=== PATIENT | female | born 1985 | race Caucasian/White ===

== ENCOUNTER 2016-10-16 22:15 | Emergency (ER) | payer OTHER ==
[~2016-10-16 22:15] MED LIST: ALPRAZOLAM PO; ATIVAN; ATIVAN PO; BACTRIM DS TABL1 TAB PO; CIPRO PO; CYMBALTA PO; FLAGYL PO; FLEXERIL PO; IBUPROFEN PO; KEFLEX250 M1 PO; KEPPRA750 MG; KEPPRA750 MG PO; KETOPROFEN PO; KLONOPIN; MACROBID100 MG DOB; MEDROL PO; MOBIC7.5 MG/5 M PO; NORCO 10/325 TA1 TAB PO; ORUDIS75 M1 PO; PHENERGAN PR; PYRIDIUM PO; TYLENOL #3 PO; VICODIN 5/500 T1 TAB PO; VOLTAREN75 MG PO
[2016-10-17 02:48] LABS: URINE SOURCE CATH
[2016-10-17 02:56] LABS: URINE APPEARANCE CLOUDY; URINE BILIRUBIN NEG (NEG); URINE BLOOD 2+ (NEG); URINE COLOR YELLOW; URINE GLUCOSE NEG (NEG); URINE KETONE NEG (NEG); URINE LEUKOCYTE ESTERASE 1+ (NEG); URINE NITRATE POS (NEG); URINE PROTEIN NEG (NEG); URINE SPECIFIC GRAVITY 1.029 (1.003-1.035)
[2016-10-17 02:59] LABS: CULTURE INDICATED? YES; URBCS1 AUWI 0-2 /[HPF] (0-2); URINE BACTERIA AUWI 2+ (NEGATIVE); URINE SQUAMOUS EPITHELIAL CELL MOD /[HPF]
[2016-10-17 04:33] LABS: BASOPHIL# 0.1 X10e3 (0-0.3); BASOPHIL% 0.5 % (0-2.5); EOSINOPHIL# 0.2 X10e3 (0-0.7); EOSINOPHIL% 2.2 % (0.0-7.0); HEMATOCRIT 42.1 % (35.0-45.0); LYMPHOCYTE# 3.2 X10e3 (1.0-3.5); LYMPHOCYTE% 33.3 % (17.0-45.0); MEAN CELL VOLUME 85.9 FL (83-96); MEAN CORPUSCULAR HEMOGLOBIN 28.6 PG (28-34); MEAN CORPUSCULAR HGB CONC 33.3 g/dL (30-36); MEAN PLATELET VOLUME 7.5 FL (6.5-11.5); MONOCYTE# 0.9 X10e3 (0-1.0); MONOCYTE% 8.9 % (3.0-12.0); NEUTROPHIL# 5.3 X10e3 (1.5-7.1); NEUTROPHIL% 55.1 % (40-75); PLATELET COUNT 301 X10e3 (140-420); WHITE BLOOD COUNT 9.6 X10e3 (4.0-10.5)
[2016-10-17 04:35] LABS: DIFF IND NO
[2016-10-17 04:53] LABS: CALCIUM SERUM 9.5 mg/dL (8.4-10.2); POTASSIUM 3.2 mmol/L (3.5-5.1)
== END 2016-10-17 05:08 | disposition home or self-care (01) ==
LOC: CED 22:15
PROVIDERS: Nurse Practitioner Family
DX: N39.0 Urinary tract infection, site not specified (principal); F41.9 Anxiety disorder, unspecified; G82.20 Paraplegia, unspecified; F17.210 Nicotine dependence, cigarettes, uncomplicated
CPT/HCPCS: 36415; 80048; 81003; 83605; 84703; 85025; 87086; 87088; 87186; 99284

== ENCOUNTER 2016-11-12 14:00 | Emergency (ER) | payer OTHER ==
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
== END 2016-11-12 15:32 | disposition home or self-care (01) ==
LOC: CED 14:00
DX: S43.102A Unspecified dislocation of left acromioclavicular joint, initial encounter (principal); F17.210 Nicotine dependence, cigarettes, uncomplicated; G40.909 Epilepsy, unspecified, not intractable, without status epilepticus; X58.XXXA Exposure to other specified factors, initial encounter; Y92.9 Unspecified place or not applicable
CPT/HCPCS: 73030; 99284

== ENCOUNTER 2016-11-17 21:28 | Emergency (ER) | payer OTHER | END 2016-11-17 23:24 | disposition home or self-care (01) | LOC: CED 21:28 | DX: M25.512 Pain in left shoulder (principal); F41.9 Anxiety disorder, unspecified; F17.210 Nicotine dependence, cigarettes, uncomplicated | CPT/HCPCS: 99283 ==